=== PATIENT | male | born 1950 | race Caucasian/White ===

== ENCOUNTER 2020-06-11 03:55 | Inpatient (IN) ==
[2020-06-11 05:08] LABS: Urine Appearance Clear; Urine Bilirubin Negative (Negative); Urine Blood 1+ (Negative); Urine Color Yellow; Urine Glucose 3+(>=500 mg/dL) (Negative); Urine Ketones Trace (Negative); Urine Nitrite Negative (Negative); Urine Protein 1+(30 mg/dL) (Negative); Urine Specific Gravity 1.027 (1.010-1.030); Urine Urobilinogen Negative (Negative)
[2020-06-11 05:15] LABS: Urine Bacteria Absent (Absent); Urine Red Blood Cell Trace(0-2/hpf) (Absent); Urine White Blood Cell Trace(0-5/hpf) (Absent)
[2020-06-11] MEDS ORDERED: NS 0.9% 1000 ml BAG 1,000 ML IV ONE (05:26)
[2020-06-11 05:27] LABS: Troponin I 0.05 ng/mL (<0.03)
[2020-06-11] MEDS ORDERED: Dextrose 50% Syringe 50 ml 25 GM/50 ML SYRINGE IV PUSH PRN (05:32)
[2020-06-11] MEDS ORDERED: Ondansetron 4 mg VIAL 2 MG/ML 2 ml VIAL IV PRN (05:38)
[2020-06-11] MEDS ORDERED: NS 0.9% 1000 ml BAG 1,000 ML IV SCH (05:45)
[2020-06-11 05:53] LABS: Influenza A Molecular Negative (Negative); Influenza B Molecular Negative (Negative)
[2020-06-11] MEDS: Mometasone/Formoter 100/5 MDI INH SCH ×2 (10:47→19:45)
[2020-06-11] MEDS: cefTRIAXone 2 GM ADDV.VIAL 2 GM in NS 0.9% 100 ml BAG 100 ML IV SCH (11:04)
[2020-06-11 11:25] LABS: Troponin I 0.05 ng/mL (<0.03)
[2020-06-12 06:19] LABS: ABS Lymphocytes 0.8 10^3/ul (1.0-4.8); ABS Monocytes 0.8 10^3/ul (0-0.8); ABS Neutrophils 8.3 10^3/ul (1.5-7.7); Eosinophil % 0.5 %; Hematocrit 38 % (42-52); Lymphocyte % 8.1 %; Mean Corpuscular HGB Conc 34 g/dL (31-36); Mean Corpuscular Hemoglobin 27 pg (27-31); Mean Corpuscular Volume 80 fL (80-94); Nucleated Red Blood Cells % 0.1; Platelet Count 214 10^3/uL (150-450); Red Blood Count 4.78 10^6 /uL (4.18-5.48); Red Cell Distribution Width 16 % (10-15)
[2020-06-12 06:37] LABS: C Reactive Protein 145.45 mg/L (<8.01); Calcium 8.9 mg/dL (8.6-10.3); EGFR African American 75.1 (>60); EGFR Non-African American 62.1 (>60); Potassium 3.6 mmol/L (3.5-5.0)
[2020-06-12] MEDS: Mometasone/Formoter 100/5 MDI INH SCH ×2 (07:55→19:57)
[2020-06-12] MEDS: cefTRIAXone 2 GM ADDV.VIAL 2 GM in NS 0.9% 100 ml BAG 100 ML IV SCH (09:58)
[2020-06-12 13:47] LABS: Albumin 3.5 g/dL (3.2-5.2); Albumin/Globulin Ratio 1.2 (1-3); Globulin 2.9 g/dL (2-4); Indirect Bilirubin 1.4 mg/dL (0.3-1.0); Total Bilirubin 1.7 mg/dL (0.2-1.0); Total Protein 6.4 g/dL (6.4-8.9)
[2020-06-13 06:11] LABS: ABS Eosinophils 0.1 10^3/ul (0-0.6); ABS Lymphocytes 0.8 10^3/ul (1.0-4.8); ABS Monocytes 0.7 10^3/ul (0-0.8); ABS Neutrophils 6.3 10^3/ul (1.5-7.7); Eosinophil % 1.1 %; Hematocrit 42 % (42-52); Hemoglobin 14.2 g/dL (14.0-18.0); Lymphocyte % 10.3 %; Mean Corpuscular HGB Conc 34 g/dL (31-36); Mean Corpuscular Hemoglobin 27 pg (27-31); Mean Corpuscular Volume 81 fL (80-94); Mean Platelet Volume 6.8 fL (7.4-10.4); Platelet Count 225 10^3/uL (150-450); Red Blood Count 5.25 10^6 /uL (4.18-5.48); Red Cell Distribution Width 16 % (10-15)
[2020-06-13 06:28] LABS: Albumin 3.8 g/dL (3.2-5.2); Albumin/Globulin Ratio 1.2 (1-3); BUN/Creatinine Ratio 23.8 (8-20); C Reactive Protein 105.87 mg/L (<8.01); Calcium 9.2 mg/dL (8.6-10.3); EGFR African American 88.1 (>60); EGFR Non-African American 72.8 (>60); Globulin 3.3 g/dL (2-4); Potassium 3.7 mmol/L (3.5-5.0); Total Bilirubin 1.5 mg/dL (0.2-1.0); Total Protein 7.1 g/dL (6.4-8.9)
[2020-06-13] MEDS: Mometasone/Formoter 100/5 MDI INH SCH ×2 (07:26→19:36)
[2020-06-13] MEDS: cefTRIAXone 2 GM ADDV.VIAL 2 GM in NS 0.9% 100 ml BAG 100 ML IV SCH (09:58)
[2020-06-14] MEDS: Mometasone/Formoter 100/5 MDI INH SCH (07:54)
[2020-06-14] MEDS: cefTRIAXone 2 GM ADDV.VIAL 2 GM in NS 0.9% 100 ml BAG 100 ML IV SCH (10:15)
[2020-06-14 11:40] VITALS: BP 150/73
== END 2020-06-14 13:10 | disposition home or self-care (01) | DRG 872 ==
LOC: ED 03:55 → MED 08:12
PROVIDERS: ADMIT Student in an Organized Health Care Education/Training Program; ATTEND Internal Medicine